=== PATIENT | female | born 1955 | race Hispanic/Latino ===

== ENCOUNTER 2017-01-16 13:16 | Outpatient (CLI) | payer MEDICARE ==
--- NOTE | 2017-01-16 14:50 | Ultrasound Report ---
Bilateral digital diagnostic mammogram with CAD and targeted right breast ultrasound. History: Followup abnormal mammogram. Findings: Comparison is made to the previous mammogram and ultrasound on December 25, 2015. The breasts demonstrate a fibrofatty appearance, and the overall pattern is unchanged. No architectural distortion or suspicious calcifications are seen. Minimal right subareolar parenchymal asymmetries are stable. Sonographic evaluation of the subareolar right breast demonstrate 2 small cysts each measuring 3 mm in diameter. No new or enlarging masses are seen. Impression: 2 small right subareolar cysts. No suspicious imaging findings are seen. BI-RADS code: 2. Recommendation: Annual screening.
== END 2017-01-16 13:17 | disposition home or self-care (01) ==
LOC: MAMMO 13:16
PROVIDERS: ATTEND Obstetrics & Gynecology
DX: N60.01 Solitary cyst of right breast (principal)
CPT/HCPCS: 76642; G0204; 77066

== ENCOUNTER 2017-02-07 15:24 | Outpatient (CLI) | payer MEDICARE ==
[2017-02-07] MEDS ORDERED: NACL ONE (16:40)
[2017-02-07 16:48] LABS: Blood Urea Nitrogen 18 mg/dL (7-17)
== END 2017-02-07 15:25 | disposition home or self-care (01) ==
LOC: CT 15:24
PROVIDERS: ATTEND Internal Medicine
DX: R91.1 Solitary pulmonary nodule (principal)
CPT/HCPCS: 36415; 71260; 82565; 84520

== ENCOUNTER 2017-03-24 08:28 | Emergency (ER) | payer MEDICARE ==
[2017-03-24 09:02] LABS: Basophils % (Auto) 0.2 % (0.0-1.8); Eosinophils % (Auto) 0.2 % (0.0-4.3); Hematocrit 40.4 % (30.3-42.9); Hemoglobin 13.7 gm/dl (10.1-14.3); Mean Corpuscular HGB Conc 34 % (30-34); Mean Corpuscular Hemoglobin 30 pg (28-32); Mean Corpuscular Volume 87 fl (79-97); Platelet Count 176 K/mm3 (140-440); Red Blood Count 4.64 M/mm3 (3.65-5.03); Red Cell Distribution Width 12.8 % (13.2-15.2); White Blood Count 8.4 K/mm3 (4.5-11.0)
[2017-03-24 09:15] LABS: Alanine Aminotransferase 13 units/L (7-56); Albumin/Globulin Ratio 1.1 %; Alkaline Phosphatase 105 units/L (35-129); Anion Gap 17 mmol/L; Blood Urea Nitrogen 9 mg/dL (7-17); Calcium 8.8 mg/dL (8.4-10.2); Carbon Dioxide 24 mmol/L (22-30); Chloride 102.2 mmol/L (98-107); Glucose 107 mg/dL (65-100); Lipase 23 units/L (13-60); Potassium 3.5 mmol/L (3.6-5.0); Sodium 140 mmol/L (137-145); Total Protein 7.6 g/dL (6.3-8.2)
[2017-03-24 09:40] LABS: Bilirubin,Urine NEG (Negative); Blood,Urine NEG (Negative); Ketones,Urine 20 mg/dL (Negative); Leukocyte Esterase,Urine NEG (Negative); Mucus,Urine FEW /HPF; Nitrite,Urine NEG (Negative); Protein,Urine <15 mg/dL mg/dL (Negative); Urobilinogen,Urine < 2.0 mg/dL (<2.0)
[2017-03-24 09:45] LABS: WBC,Urine < 1.0 /HPF (0.0-6.0)
[2017-03-24 09:58] VITALS: BP 180/88
[2017-03-24] MEDS ORDERED: NACL 0.9% 1000 ML 1,000 ML IV ONE (10:14)
[2017-03-24] MEDS ORDERED: TORADOL IV ONE (10:14)
--- NOTE | 2017-03-24 10:15 | Emergency Department Report ---
ED Abdominal Pain HPI - General Chief Complaint: Abdominal Pain Stated Complaint: ABD PAIN Time Seen by Provider: 03/24/17 09:47 Source: patient, EMS Mode of arrival: Ambulatory Limitations: No Limitations - History of Present Illness Initial Comments: Patient is a 61-year-old female with a history of right upper quadrant pain in the past year with recurrent right upper quadrant pain. She states that over the last couple days for abdominal pain has worsened. She is not actively nauseous or vomiting she is able tolerate by mouth. No fevers. She states that she's had a workup at the past at [place] and they did not find a cause for her abdominal pain. MD Complaint: abdominal pain -: Sudden Location: RUQ Radiation: none Migration to: no migration Severity: moderate Quality: stabbing, sharp Consistency: constant Worsens With: medication - Related Data Home Medications Medication Instructions Recorded Confirmed Last Taken ALPRAZolam [Xanax TAB] 1 mg PO 4XD PRN 04/22/14 03/24/17 04/25/14 Diphenoxylate HCl/Atropine 1 each PO PRN PRN 04/22/14 03/24/17 04/26/14 [Lomotil 2.5-0.025 mg Tablet] 0.625 Esomeprazole Magnesium [NexIUM] 40 mg PO DAILY 04/22/14 03/24/17 04/25/14 Furosemide [Lasix] 40 mg PO DAILY 04/22/14 03/24/17 04/25/14 Potassium Chloride [K-Dur] 20 meq PO QDAY 04/22/14 03/24/17 04/25/14 Estrogens, Conjugated [Premarin] 0.625 mg PO QDAY 04/27/14 03/24/17 04/26/14 05: 00 0.625 Atenolol [Tenormin] 25 mg PO DAILY 03/24/17 03/24/17 Unknown Previous Rx's Medication Instructions Recorded Last Taken Type HYDROcodone/APAP 5-325 [[place] 1 each PO Q6HR PRN #20 tablet 03/24/17 Unknown Rx 5-325 mg TAB] Levofloxacin [Levaquin TAB] 500 mg PO QDAY #10 tablet 03/24/17 Unknown Rx metroNIDAZOLE [Flagyl] 500 mg PO Q8HR #30 tablet 03/24/17 Unknown Rx Allergies Allergy/AdvReac Type Severity Reaction Status Date / Time amdinocillin [Amdinocillin] Allergy Anaphylaxis Verified 04/22/14 12:28 ceftriaxone sodium Allergy Unknown Verified 04/26/14 23:29 [From Rocephin] diphenhydramine HCl Allergy Anaphylaxis Verified 04/22/14 12:28 [From Benadryl] Neuromuscular Blockers, Allergy Anaphylaxis Verified 04/22/14 12:28 Steroidal [Steroidal Neuromuscular Blockers] Penicillins Allergy Anaphylaxis Verified 04/22/14 12:28 Sulfa (Sulfonamide Allergy Unknown Verified 04/26/14 23:29 Antibiotics) ED Review of Systems ROS: Stated complaint: ABD PAIN Other details as noted in HPI Constitutional: denies: chills, fever Respiratory: denies: cough, orthopnea Cardiovascular: denies: chest pain, palpitations Gastrointestinal: abdominal pain. denies: nausea, vomiting Musculoskeletal: denies: back pain Neurological: denies: headache, weakness Psychiatric: denies: anxiety, depression ED Past Medical Hx - Past Medical History Previous Medical History?: Yes Hx Congestive Heart Failure: No Hx Diabetes: No Hx GERD: Yes Hx Psychiatric Treatment: Yes ("every month" for anxiety, panic attack) Hx Asthma: No Hx COPD: No Additional medical history: hx grave's disease, diverticulitis, mitral valve prolapse, hiatal hernia - Surgical History Past Surgical History?: Yes Additional Surgical History: hysterectomy, tonsillectomy, exploratory laparoscopy, lysis of adhesions, oophorectomy salpingectomy, rhinoplasty, septoplasty, multiple D&Cs - Social History Smoking Status: Former Smoker Substance Use Type: Alcohol, Prescribed - Medications Home Medications: Home Medications Medication Instructions Recorded Confirmed Last Taken Type ALPRAZolam [Xanax TAB] 1 mg PO 4XD PRN 04/22/14 03/24/17 04/25/14 History Diphenoxylate HCl/Atropine 1 each PO PRN PRN 04/22/14 03/24/17 04/26/14 History [Lomotil 2.5-0.025 mg Tablet] 0.625 Esomeprazole Magnesium [NexIUM] 40 mg PO DAILY 04/22/14 03/24/17 04/25/14 History Furosemide [Lasix] 40 mg PO DAILY 04/22/14 03/24/17 04/25/14 History Potassium Chloride [K-Dur] 20 meq PO QDAY 0803/24/17 04/25/14 History Estrogens, Conjugated [Premarin] 0.625 mg PO QDAY 04/27/14 03/24/17 04/26/14 05: 00 History 0.625 Atenolol [Tenormin] 25 mg PO DAILY 03/24/17 03/24/17 Unknown History HYDROcodone/APAP 5-325 [[place] 1 each PO Q6HR PRN #20 tablet 03/24/17 Unknown Rx 5-325 mg TAB] Levofloxacin [Levaquin TAB] 500 mg PO QDAY #10 tablet 03/24/17 Unknown Rx metroNIDAZOLE [Flagyl] 500 mg PO Q8HR #30 tablet 03/24/17 Unknown Rx ED Physical Exam - General Limitations: No Limitations General appearance: alert, in no apparent distress - Head Head exam: Present: atraumatic, normocephalic - Eye Eye exam: Present: normal appearance - ENT ENT exam: Present: mucous membranes moist - Neck Neck exam: Present: normal inspection - Respiratory Respiratory exam: Present: normal lung sounds bilaterally. Absent: respiratory distress - Cardiovascular Cardiovascular Exam: Present: regular rate, normal rhythm. Absent: systolic murmur, diastolic murmur, rubs, gallop - GI/Abdominal GI/Abdominal exam: Present: soft, tenderness (tender in the right upper quadrant ), guarding, normal bowel sounds. Absent: rebound, rigid - Extremities Exam Extremities exam: Present: normal inspection - Back Exam Back exam: Present: normal inspection - Neurological Exam Neurological exam: Present: alert, oriented X3 - Psychiatric Psychiatric exam: Present: normal affect, normal mood - Skin Skin exam: Present: warm, dry, intact, normal color. Absent: rash ED Course Vital Signs 03/24/17 03/24/17 03/24/17 08:43 09:47 09:55 Temperature 98.1 F Pulse Rate 54 L Respiratory 20 20 Rate Blood Pressure 185/93 180/88 O2 Sat by Pulse 99 99 99 Oximetry ED Medical Decision Making - Lab Data Result diagrams: 03/24/17 08:51 03/24/17 08:51 Laboratory Results - last 24 hr 03/24/17 03/24/17 03/24/17 08:51 08:51 09:31 WBC 8.4 RBC 4.64 Hgb 13.7 Hct 40.4 MCV 87 MCH 30 MCHC 34 RDW 12.8 L Plt Count 176 Lymph % (Auto) 15.2 Door % (Auto) 3.5 Eos % (Auto) 0.2 Baso % (Auto) 0.2 Lymph # 1.3 Door # 0.3 Eos # 0.0 Baso # 0.0 Seg Neutrophils % 80.9 H Seg Neutrophils # 6.8 Sodium 140 Potassium 3.5 L Chloride 102.2 Carbon Dioxide 24 Anion Gap 17 BUN 9 Creatinine 0.6 L Estimated GFR > 60 BUN/Creatinine Ratio 15.00 Glucose 107 H Calcium 8.8 Total Bilirubin 0.40 AST 16 ALT 13 Alkaline Phosphatase 105 Total Protein 7.6 Albumin 4.0 Albumin/Globulin Ratio 1.1 Lipase 23 Urine Color Yellow Urine Turbidity Clear Urine pH 6.0 Ur Specific [place] 1.018 Urine Protein <15 mg/dl Urine Glucose (UA) Neg Urine Ketones 20 Urine Blood Neg Urine Nitrite Neg Urine Bilirubin Neg Urine Urobilinogen < 2.0 Ur Leukocyte Esterase Neg Urine WBC (Auto) < 1.0 Urine RBC (Auto) 2.0 U Epithel Cells (Auto) 1.0 Urine Mucus Few - Medical Decision Making Patient is a 61-year-old female here with right upper quadrant pain for the past 2 days. She is afebrile and has no elevation in her white count or her LFTs. Her ultrasound shows several gallstones in the gallbladder with asymmetric thickening. There is no pericholecystic fluid and her CBD is normal. The interpretation is probable acute cholecystitis. I spoke to Dr. Noel who recommends that the patient follow-up as an outpatient. I recommended admission he was comfortable seeing the patient as an outpatient. He recommends pain medicine 1 g of Keflex 3 times a day and to call him with any concerns or questions and he will give the patient his cell phone number. I discussed this with the patient and she is comfortable with the plan. After discussing with patient that they mentioned that they are allergic to Keflex. I plan to switch the patient's antibiotics to Flagyl and Levaquin. The patient mentioned that she may be allergic to Levaquin but she cannot give me a obvious reaction or more history that is consistent with allergic reaction. I attempted to contact her psychological aide who may or may not noted this reaction and they were unable to get in touch with me. This point I plan to discharge her with Levaquin and Flagyl and hydrocodone and have her follow-up with the surgeon. Portions of this chart were dictated with dictation software. There may be dictation errors contained within this note. Critical care attestation.: If time is entered above; I have spent that time in minutes in the direct care of this critically ill patient, excluding procedure time. ED Disposition Clinical Impression: Biliary colic Disposition: DC-01 TO HOME OR SELFCARE Is pt being admited?: No Does the pt Need Aspirin: No Condition: Stable Instructions: Abdominal Pain (ED) Additional Instructions: Please follow up with Dr. Noel on February 24 at 10:30 AM. His office is closed but he will be seeing patients. He may call his cell phone [phone] he have any specific questions. Please return to the emergency department if he have worsening pain nausea vomiting or develop a fever. Prescriptions: HYDROcodone/APAP 5-325 [[place] 5-325 mg TAB] 1 each PO Q6HR PRN #20 tablet PRN Reason: Pain Levofloxacin [Levaquin TAB] 500 mg PO QDAY #10 tablet metroNIDAZOLE [Flagyl] 500 mg PO Q8HR #30 tablet Referrals: PRIMARY CAREMD [Primary Care Provider] - 3-5 Days JENNYFER NOEL MD [Staff Physician] - 2-3 Days (Please follow up with Dr. Noel on March at 10:30 AM she have worsening symptoms return to the emergency department or call his cell phone. [phone])
--- NOTE | 2017-03-24 11:13 | Ultrasound Report ---
Sonogram right upper quadrant: History: Right upper quadrant pain. Findings: Aortic diameter 2.2 cm. Normal liver. No intrahepatic duct dilatation. Common bile duct diameter 7 mm. Gallbladder wall thickness is asymmetric and measures 4.7 mm. Multiple calculi identified within the gallbladder. The largest measures 2.2 cm. There is suspected calculus measuring 1.4 cm noted in the neck of the gallbladder. Right kidney 10.3 x 3.4 x 5.9 cm. Cortical thickness 1.1 cm. No mass. No hydronephrosis. Pancreas normal. Impression: Asymmetric thickening of the wall of the gallbladder with multiple calculi within the gallbladder. Probable acute cholecystitis.
[2017-03-24] MEDS ORDERED: TORADOL IM ONE (11:53)
[2017-03-24] MEDS ORDERED: FLAGYL PO ONE (12:57)
[2017-03-24] MEDS ORDERED: LEVAQUIN PO ONE (12:57)
== END 2017-03-24 14:49 | disposition home or self-care (01) ==
LOC: ED 08:28
DX: K80.50 Calculus of bile duct without cholangitis or cholecystitis without obstruction (principal); K21.9 Gastro-esophageal reflux disease without esophagitis; F41.9 Anxiety disorder, unspecified; E05.00 Thyrotoxicosis with diffuse goiter without thyrotoxic crisis or storm; Z88.1 Allergy status to other antibiotic agents; Z88.0 Allergy status to penicillin; Z88.2 Allergy status to sulfonamides; Z88.8 Allergy status to other drugs, medicaments and biological substances; Z87.891 Personal history of nicotine dependence
CPT/HCPCS: 36415; 76705; 80053; 81001; 83690; 85025; 96372; 99284; J1885